=== PATIENT | female | born 1985 | race Caucasian/White ===

== ENCOUNTER 2016-06-29 23:06 | Emergency (ER) | payer OTHER ==
[2016-06-29 23:21] VITALS: BP 123/72; PULSE 92; RESP 18; TEMP 97.2
--- NOTE | 2016-06-29 23:24 | ED ---
General Adult HPI - General Chief complaint: Extremity Injury, Lower Stated complaint: foot pain Time Seen by Provider: 06/29/16 23:10 Source: patient, RN notes reviewed Mode of arrival: ambulatory Limitations: no limitations - History of Present Illness Initial comments: This is a 31-year-old female who presents to the emergency department complaining of right mid foot pain. Patient states she went to a [employer] came home with the bed for 2 hours and when she awoke 2 hours later it hurts to step on her foot. Patient states she didn't twist it or hurt it anyway that she knows of. Patient states she was wearing normal tendon issues at the [employer]. Patient denies any redness or warmth or swelling to the area. Patient states this has happened before to her in the past that just goes away eventually. - Related Data Previous Rx's Medication Instructions Recorded Acetaminophen with Codeine 1 each PO Q4H #20 tab 06/29/16 [Tylenol w/codeine #3] Ibuprofen [Motrin] 600 mg PO Q6HR PRN #20 tab 06/29/16 Allergies Allergy/AdvReac Type Severity Reaction Status Date / Time acetaminophen Allergy Unknown Verified 06/29/16 23:21 [From Darvocet-N] propoxyphene napsylate Allergy Unknown Verified 06/29/16 23:21 [From Darvocet-N] Review of Systems ROS Statement: Those systems with pertinent positive or pertinent negative responses have been documented in the HPI. ROS Other: All systems not noted in ROS Statement are negative. Past Medical History Past Medical History: No Reported History History of Any Multi-Drug Resistant Organisms: None Reported Past Surgical History: No Surgical Hx Reported Past Psychological History: No Psychological Hx Reported Smoking Status: Never smoker Past Alcohol Use History: Occasional Past Drug Use History: None Reported - Past Family History Mother Family Medical History: No Reported History Father Family Medical History: No Reported History General Exam - General Exam Comments Initial Comments: GENERAL Patient is well-developed and well-nourished. Patient is in mild distress. EYES Patient's pupils are equal and round. Extraocular motion is intact SKIN Unremarkable NEURO The patient is alert and oriented 3 PYSCH Patient has normal interpersonal interactions. MUSCULOSKELETAL Patient's right foot is tender midfoot on the dorsal surface. There is no swelling or redness or warmth. Limitations: no limitations Course Vital Signs 06/29/16 23:18 Temperature 97.2 F L Pulse Rate 92 Respiratory 18 Rate Blood Pressure 123/72 O2 Sat by Pulse 98 Oximetry Medical Decision Making - Medical Decision Making X-ray of the foot shows no acute abnormality. Disposition Clinical Impression: Right foot sprain Disposition: HOME SELF-CARE Instructions: Foot Sprain (ED) Prescriptions: Acetaminophen with Codeine [Tylenol w/codeine #3] 1 each PO Q4H #20 tab Ibuprofen [Motrin] 600 mg PO Q6HR PRN #20 tab PRN Reason: For pain Referrals: Bernie Key MD [Primary Care Provider] - 1-2 days Time of Disposition: 23:39
[2016-06-29] MEDS ORDERED: Acetaminophen-Codeine 300-30mg TAB PO STA (23:40)
--- NOTE | 2016-06-30 00:59 | XR ---
EXAMINATION TYPE: XR foot complete RT DATE OF EXAM: 06/29/2016 11:39 PM CLINICAL HISTORY: pain TECHNIQUE: Frontal, lateral and oblique images of the right foot are obtained. COMPARISON: None. FINDINGS: There is no acute fracture/dislocation evident. The joint spaces appear within normal zambrano its. The overlying soft tissue appears unremarkable. IMPRESSION: There is no acute fracture or dislocation. ICD 10 NO FRACTURE, INITIAL EVALUATION
== END 2016-06-29 23:49 | disposition home or self-care (01) ==
LOC: EC 23:06
DX: S93.401A Sprain of unspecified ligament of right ankle, initial encounter (principal); X58.XXXA Exposure to other specified factors, initial encounter; Z88.5 Allergy status to narcotic agent; Z88.8 Allergy status to other drugs, medicaments and biological substances
CPT/HCPCS: 99283

== ENCOUNTER → 2017-03-06 | Outpatient (CLI) | payer OTHER | END | disposition home or self-care (01) | LOC: MMGSC 13:33 | PROVIDERS: ATTEND Family Medicine | DX: N76.0 Acute vaginitis (principal) | CPT/HCPCS: 87070; 87077; 87186; 87205; 87252; 87491; 87498; 87529; 87591; 87798 ==